=== PATIENT | male | born 1980 | race Hispanic/Latino ===

== ENCOUNTER 2021-03-29 12:06 | Inpatient (IN) | payer OTHER ==
[~2021-03-29] VITALS: Ht 152.4 cm; Wt 63.5 kg
[2021-03-29] VITALS (14 sets, daily range): BP systolic 102–127; BP diastolic 68–83
[2021-03-29 12:53] LABS: BASOPHILS % (AUTO) 0.3 % (0.0-5.0); EOSINOPHILS % (AUTO) 0.1 % (0.0-8.0); HEMATOCRIT 37.7 % (42-54); LYMPHOCYTES % (AUTO) 11.7 % (21.0-51.0); MEAN CORPUSCULAR HGB CONC 33.4 g/dL (32.0-36.0); MEAN CORPUSCULAR VOLUME 86.9 fL (79-99); NEUTROPHILS % (AUTO) 81.6 % (40.0-77.0); PLATELET COUNT (AUTO) 296 K/uL (130-400); RED BLOOD CELL COUNT(AUTO) 4.34 MIL/uL (4.50-6.20); RED CELL DISTRIBUTION WIDTH 11.9 % (11.0-15.5); WHITE BLOOD COUNT (AUTO) 10.9 K/uL (4.8-10.8)
[2021-03-29] MEDS ORDERED: VANCOMYCIN PROTOCOL PER PHARMACY IV SCH (13:00)
[2021-03-29] MEDS ORDERED: VANCOMYCIN 1G VIAL IVPB SCH (13:00)
[2021-03-29] MEDS: ZOSYN 3.375GM+NS 50ML 50 ML IV SCH ×2 (13:00→21:27)
[2021-03-29] MEDS ORDERED: ZOSYN 3.375GM+NS 50ML 3.38 GM in 0.9%NACL 50ML 50 ML IV SCH (13:00)
[2021-03-29] MEDS ORDERED: 0.9% NACL 250ML IV SCH (13:00)
[2021-03-29 13:09] LABS: CREATININE 0.8 mg/dL (0.5-1.5); POTASSIUM 4.6 mmol/L (3.5-5.1)
[2021-03-29] MEDS ORDERED: 0.9%NACL 50ML 50 ML IV ONE (13:13)
[2021-03-29 13:14] LABS: ALBUMIN 3.5 g/dL (3.5-5.0); BILIRUBIN,TOTAL 1.4 mg/dL (0.2-1.0); CRP QUANTITATIVE 171.1 mg/L (0.00-9.0); TOTAL PROTEIN, SERUM 9.2 g/dL (6.0-8.3)
[2021-03-29] MEDS ORDERED: MORPHINE 2 MG SYG IV PRN (14:00)
[2021-03-29] MEDS: VANCOMYCIN 1G/250ML KIT 250 ML IV SCH (14:00)
[2021-03-29] MEDS ORDERED: ONDANSETRON 4MG INJ IV PRN (14:00)
[2021-03-29] MEDS ORDERED: LACTULOSE 20 GM/30 ML UDCUP PO PRN (14:00)
[2021-03-29] MEDS ORDERED: ACETAMINOPHEN 325 MG TAB PO PRN ×2 (14:00)
[2021-03-29] MEDS: 0.9%NACL 1000ML 1,000 ML IV SCH ×2 (15:16→19:58)
[2021-03-29] MEDS ORDERED: MIDAZOLAM HCL 1 MG/ML 2ML VIAL ONE (16:35)
[2021-03-29] MEDS ORDERED: PROPOFOL 10 MG/ML 20ML VIAL IV ONE (16:35)
[2021-03-29] MEDS ORDERED: FENTANYL CITRATE PF 50 MCG/1 ML 2ML VIAL ONE ×2 (16:36→19:41)
[2021-03-29] MEDS ORDERED: BUPIVACAINE/PF 0.5% 10ML VIAL ONE (16:43)
[2021-03-29] MEDS ORDERED: LIDOCAINE HCL 1% MDV 50ML VIAL ONE (16:45)
[2021-03-29] MEDS ORDERED: PROPOFOL 1000 MG/100 ML 0 ML IV ONE (16:50)
[2021-03-29] MEDS ORDERED: PROPOFOL 1000 MG/100 ML 100 ML IV ONE (16:53)
[2021-03-29] MEDS ORDERED: INSULIN HUMULIN R 100 UNIT/ML 3ML SQ SCH (18:00)
[2021-03-29] MEDS ORDERED: LIDOCAINE HCL MPF 1% 5ML VIAL ONE (18:39)
[2021-03-29] MEDS ORDERED: ZOSYN 3.375GM+NS 50ML 50 ML IV SCH (21:00)
[2021-03-29] MEDS: FAMOTIDINE 20MG VIAL IV SCH (21:27)
[2021-03-30] VITALS (9 sets, daily range): BP systolic 99–148; BP diastolic 57–82
[2021-03-30] MEDS ORDERED: 0.9% NACL 250ML 250 ML ONE ×2 (02:10→14:46)
[2021-03-30] MEDS: 0.9%NACL 1000ML 1,000 ML IV SCH ×2 (02:15→17:10)
[2021-03-30] MEDS: VANCOMYCIN 1G/250ML KIT 250 ML IV SCH ×2 (02:16→14:48)
[2021-03-30] MEDS: ZOSYN 3.375GM+NS 50ML 50 ML IV SCH ×3 (04:37→20:22)
[2021-03-30 04:53] LABS: BASOPHILS % (AUTO) 0.2 % (0.0-5.0); EOSINOPHILS % (AUTO) 0.5 % (0.0-8.0); HEMATOCRIT 32.3 % (42-54); LYMPHOCYTES % (AUTO) 16.4 % (21.0-51.0); MEAN CORPUSCULAR HEMOGLOBIN 28.7 pg (27.0-33.0); MEAN CORPUSCULAR HGB CONC 32.8 g/dL (32.0-36.0); MEAN CORPUSCULAR VOLUME 87.5 fL (79-99); MONOCYTES % (AUTO) 7.9 % (3.0-13.0); NEUTROPHILS % (AUTO) 74.6 % (40.0-77.0); PLATELET COUNT (AUTO) 248 K/uL (130-400); RED BLOOD CELL COUNT(AUTO) 3.69 MIL/uL (4.50-6.20); RED CELL DISTRIBUTION WIDTH 11.9 % (11.0-15.5); WHITE BLOOD COUNT (AUTO) 8.4 K/uL (4.8-10.8)
[2021-03-30 05:04] LABS: CREATININE 0.7 mg/dL (0.5-1.5); POTASSIUM 3.6 mmol/L (3.5-5.1)
[2021-03-30] MEDS: INSULIN HUMULIN R 100 UNIT/ML 3ML SQ SCH ×4 (06:00→20:22)
[2021-03-30 08:38] LABS: HEMOGLOBIN A1C 6.7 % (4.0-6.0)
[2021-03-30] MEDS: ENOXAPARIN SODIUM 40 MG/0.4 ML SYRINGE SQ SCH (08:50)
[2021-03-30] MEDS: FAMOTIDINE 20MG VIAL IV SCH ×2 (08:50→20:22)
[2021-03-31] MEDS ORDERED: 0.9% NACL 250ML 250 ML ONE (01:10)
[2021-03-31] MEDS: VANCOMYCIN 1G/250ML KIT 250 ML IV SCH (01:53)
[2021-03-31 04:02] VITALS: BP 96/59
[2021-03-31] MEDS: ZOSYN 3.375GM+NS 50ML 50 ML IV SCH ×3 (04:40→20:20)
[2021-03-31] MEDS: 0.9%NACL 1000ML 1,000 ML IV SCH ×2 (04:41→19:28)
[2021-03-31 05:15] LABS: BASOPHILS % (AUTO) 0.5 % (0.0-5.0); EOSINOPHILS % (AUTO) 0.8 % (0.0-8.0); HEMATOCRIT 29.7 % (42-54); LYMPHOCYTES % (AUTO) 24.7 % (21.0-51.0); MEAN CORPUSCULAR HGB CONC 33.3 g/dL (32.0-36.0); MEAN CORPUSCULAR VOLUME 87.1 fL (79-99); MONOCYTES % (AUTO) 8.6 % (3.0-13.0); NEUTROPHILS % (AUTO) 65.1 % (40.0-77.0); PLATELET COUNT (AUTO) 248 K/uL (130-400); RED BLOOD CELL COUNT(AUTO) 3.41 MIL/uL (4.50-6.20); RED CELL DISTRIBUTION WIDTH 11.9 % (11.0-15.5)
[2021-03-31 05:24] LABS: CREATININE 0.7 mg/dL (0.5-1.5); POTASSIUM 3.5 mmol/L (3.5-5.1)
[2021-03-31] MEDS: INSULIN HUMULIN R 100 UNIT/ML 3ML SQ SCH ×4 (06:33→20:20)
[2021-03-31 08:16] VITALS: BP 107/68
[2021-03-31] MEDS: FAMOTIDINE 20MG VIAL IV SCH ×2 (09:26→20:20)
[2021-03-31] MEDS: ENOXAPARIN SODIUM 40 MG/0.4 ML SYRINGE SQ SCH (09:27)
[2021-03-31 11:42] VITALS: BP 94/58
[2021-03-31] MEDS ORDERED: COMPOUND IV REFRIGERATED 1 EACH IVSOLN MISC PRN (14:00)
[2021-03-31] MEDS: VANCOMYCIN 1G 1.25 GM in 0.9% NACL 250ML 250 ML IV SCH (14:43)
[2021-03-31 15:45] VITALS: BP 107/66
[2021-03-31 20:00] VITALS: BP 114/77
[2021-04-01] VITALS (7 sets, daily range): BP systolic 98–140; BP diastolic 66–87
[2021-04-01] MEDS: VANCOMYCIN 1G 1.25 GM in 0.9% NACL 250ML 250 ML IV SCH ×2 (01:53→16:44)
[2021-04-01] MEDS: ZOSYN 3.375GM+NS 50ML 50 ML IV SCH ×3 (04:25→20:12)
[2021-04-01] MEDS: INSULIN HUMULIN R 100 UNIT/ML 3ML SQ SCH ×4 (06:06→20:10)
[2021-04-01 06:26] LABS: BASOPHILS % (AUTO) 0.3 % (0.0-5.0); EOSINOPHILS % (AUTO) 1.9 % (0.0-8.0); HEMATOCRIT 32.8 % (42-54); LYMPHOCYTES % (AUTO) 23.4 % (21.0-51.0); MEAN CORPUSCULAR HEMOGLOBIN 29.5 pg (27.0-33.0); MEAN CORPUSCULAR HGB CONC 33.5 g/dL (32.0-36.0); MEAN CORPUSCULAR VOLUME 87.9 fL (79-99); MONOCYTES % (AUTO) 7.5 % (3.0-13.0); NEUTROPHILS % (AUTO) 66.6 % (40.0-77.0); PLATELET COUNT (AUTO) 260 K/uL (130-400); RED BLOOD CELL COUNT(AUTO) 3.73 MIL/uL (4.50-6.20); WHITE BLOOD COUNT (AUTO) 6.8 K/uL (4.8-10.8)
[2021-04-01 06:41] LABS: CREATININE 0.7 mg/dL (0.5-1.5); POTASSIUM 3.5 mmol/L (3.5-5.1)
[2021-04-01] MEDS: ENOXAPARIN SODIUM 40 MG/0.4 ML SYRINGE SQ SCH (08:54)
[2021-04-01] MEDS: FAMOTIDINE 20MG VIAL IV SCH ×2 (08:54→20:12)
[2021-04-01] MEDS: 0.9%NACL 1000ML 1,000 ML IV SCH (09:10)
[2021-04-02] MEDS: VANCOMYCIN 1G 1.25 GM in 0.9% NACL 250ML 250 ML IV SCH (02:22)
[2021-04-02] MEDS: 0.9%NACL 1000ML 1,000 ML IV SCH (02:23)
[2021-04-02 03:37] VITALS: BP 109/72
[2021-04-02] MEDS: ZOSYN 3.375GM+NS 50ML 50 ML IV SCH (05:30)
[2021-04-02 06:24] LABS: BASOPHILS % (AUTO) 0.5 % (0.0-5.0); EOSINOPHILS % (AUTO) 2.8 % (0.0-8.0); HEMATOCRIT 32.8 % (42-54); MEAN CORPUSCULAR HEMOGLOBIN 28.6 pg (27.0-33.0); MEAN CORPUSCULAR HGB CONC 32.9 g/dL (32.0-36.0); MEAN CORPUSCULAR VOLUME 86.8 fL (79-99); MONOCYTES % (AUTO) 7.2 % (3.0-13.0); NEUTROPHILS % (AUTO) 61.2 % (40.0-77.0); PLATELET COUNT (AUTO) 294 K/uL (130-400); RED BLOOD CELL COUNT(AUTO) 3.78 MIL/uL (4.50-6.20); RED CELL DISTRIBUTION WIDTH 11.8 % (11.0-15.5); WHITE BLOOD COUNT (AUTO) 6.1 K/uL (4.8-10.8)
[2021-04-02 06:36] LABS: CREATININE 0.7 mg/dL (0.5-1.5); POTASSIUM 3.7 mmol/L (3.5-5.1)
[2021-04-02] MEDS: INSULIN HUMULIN R 100 UNIT/ML 3ML SQ SCH ×3 (07:01→18:03)
[2021-04-02 08:00] VITALS: BP 107/69
[2021-04-02] MEDS: FAMOTIDINE 20MG VIAL IV SCH (10:15)
[2021-04-02] MEDS: ENOXAPARIN SODIUM 40 MG/0.4 ML SYRINGE SQ SCH (10:15)
[2021-04-02 12:00] VITALS: BP 101/74
[2021-04-02] MEDS ORDERED: IBUP-2077 PO (14:16)
[2021-04-02 16:00] VITALS: BP 133/80
[2021-04-02 19:47] VITALS: BP 131/84
== END 2021-04-02 20:56 | disposition home or self-care (01) | DRG 617 ==
LOC: EDH 12:06 → OBSVTOIN 12:07 → EDHIP 12:07 → 3CH 20:24
PROVIDERS: ADMIT Internal Medicine; ATTEND Internal Medicine
PROC: 0Y6M0ZC Detachment at Right Foot, Partial 3rd Ray, Open Approach (ICD-10-PCS; 2021-03-29)
PROC: 0Y6M0Z9 Detachment at Right Foot, Partial 1st Ray, Open Approach (ICD-10-PCS; principal; 2021-03-29 18:55)
DX: E11.621 Type 2 diabetes mellitus with foot ulcer (principal); E87.1 Hypo-osmolality and hyponatremia; M86.671 Other chronic osteomyelitis, right ankle and foot; E11.69 Type 2 diabetes mellitus with other specified complication; L97.519 Non-pressure chronic ulcer of other part of right foot with unspecified severity; E11.42 Type 2 diabetes mellitus with diabetic polyneuropathy; Z20.822 Contact with and (suspected) exposure to COVID-19
CPT/HCPCS: 36415; 71045; 73630; 73718; 80048; 80053; 80202; 82948; 83036; 83605; 84145; 85025; 86140; 87040; 87070; 87076; 87077; 87186; 87205; 87635; 93005; 97039; C9803; G0378; J1650; J1815; J2250; J2543; J2704; J3010; J3370; J3490; J7030; J7050

== ENCOUNTER 2022-01-25 16:02 | Emergency (ER) | payer OTHER ==
[~2022-01-25] VITALS: Ht 152.4 cm; Wt 72.6 kg
[~2022-01-25 16:02] MED LIST: IBUP-2077 PO
[2022-01-25] MEDS: FLUORESCEIN SODIUM 1 STRIP STRIP OP SCH (17:00)
[2022-01-25] MEDS: TETRACAINE HCL 0.5% 4 ML OPHTH SOLN OP SCH (17:00)
[2022-01-25 17:08] VITALS: BP 140/86
== END 2022-01-25 17:25 | disposition home or self-care (01) ==
LOC: EDH 16:02
DX: H43.392 Other vitreous opacities, left eye (principal); E11.9 Type 2 diabetes mellitus without complications
CPT/HCPCS: 99281

== ENCOUNTER 2022-10-04 09:15 | Emergency (ER) | payer OTHER ==
[~2022-10-04] VITALS: Ht 152.4 cm; Wt 72.6 kg
[2022-10-04 09:56] LABS: BASOPHILS % (AUTO) 0.2 % (0.0-5.0); EOSINOPHILS % (AUTO) 0.6 % (0.0-8.0); HEMATOCRIT 42.2 % (42-54); LYMPHOCYTES % (AUTO) 17.7 % (21.0-51.0); MEAN CORPUSCULAR HEMOGLOBIN 28.6 pg (27.0-33.0); MEAN CORPUSCULAR HGB CONC 33.6 g/dL (32.0-36.0); MEAN CORPUSCULAR VOLUME 85.1 fL (79-99); MONOCYTES % (AUTO) 7.1 % (3.0-13.0); NEUTROPHILS % (AUTO) 74.2 % (40.0-77.0); PLATELET COUNT (AUTO) 212 K/uL (130-400); RED BLOOD CELL COUNT(AUTO) 4.96 MIL/uL (4.50-6.20); RED CELL DISTRIBUTION WIDTH 12.4 % (11.0-15.5); WHITE BLOOD COUNT (AUTO) 8.4 K/uL (4.8-10.8)
[2022-10-04 10:06] LABS: CREATININE 0.9 mg/dL (0.5-1.5); POTASSIUM 3.9 mmol/L (3.5-5.1)
[2022-10-04 10:11] LABS: ALBUMIN 3.8 g/dL (3.5-5.0); TOTAL PROTEIN, SERUM 8.2 g/dL (6.0-8.3)
[2022-10-04 10:32] VITALS: BP 123/81
[2022-10-04] MEDS ORDERED: KETOROLAC 60 MG VIAL (30MG/ML) IM ONE ×2 (11:25→11:30)
[2022-10-04] MEDS ORDERED: CEFTRIAXONE 1G VIAL IVP ONE (12:00)
[2022-10-04] MEDS ORDERED: IBUP-2070 PO (13:02)
[2022-10-04] MEDS ORDERED: AMOX-426 PO (13:02)
== END 2022-10-04 13:19 | disposition home or self-care (01) ==
LOC: EDH 09:15
DX: L03.116 Cellulitis of left lower limb (principal); E11.9 Type 2 diabetes mellitus without complications; Z98.890 Other specified postprocedural states
CPT/HCPCS: 99284; 96374; 80053; 85025; 85651; 86140; 36415; 73630; 96372; J0696; J1885

== ENCOUNTER 2022-12-12 09:24 | Emergency (ER) | payer SELFPAY ==
[~2022-12-12] VITALS: Ht 167.6 cm; Wt 72.6 kg
[~2022-12-12 09:24] MED LIST changes: +AMOX-426 PO; +IBUP-2070 PO
[2022-12-12 09:25] VITALS: BP 126/87
[2022-12-12] MEDS ORDERED: CEPHALEXIN 500 MG CAPSULE PO ONE (10:30)
[2022-12-12] MEDS ORDERED: KETOROLAC 60 MG VIAL (30MG/ML) IM ONE (10:30)
[2022-12-12 10:47] LABS: BASOPHILS % (AUTO) 0.3 % (0.0-5.0); EOSINOPHILS % (AUTO) 2.5 % (0.0-8.0); HEMATOCRIT 39.9 % (42-54); LYMPHOCYTES % (AUTO) 24.1 % (21.0-51.0); MEAN CORPUSCULAR HEMOGLOBIN 28.5 pg (27.0-33.0); MEAN CORPUSCULAR HGB CONC 33.3 g/dL (32.0-36.0); MEAN CORPUSCULAR VOLUME 85.6 fL (79-99); MONOCYTES % (AUTO) 6.4 % (3.0-13.0); NEUTROPHILS % (AUTO) 66.4 % (40.0-77.0); PLATELET COUNT (AUTO) 237 K/uL (130-400); RED BLOOD CELL COUNT(AUTO) 4.66 MIL/uL (4.50-6.20); WHITE BLOOD COUNT (AUTO) 7.5 K/uL (4.8-10.8)
[2022-12-12 10:54] LABS: CREATININE 0.8 mg/dL (0.5-1.5); POTASSIUM 4.7 mmol/L (3.5-5.1)
[2022-12-12] MEDS: SULFAMETHOX-TMP DS 800/160 TAB PO SCH ×2 (11:14→11:20)
[2022-12-12] MEDS ORDERED: CEPH500B PO (12:13)
[2022-12-12] MEDS ORDERED: SULF1TAB42 PO (12:13)
== END 2022-12-12 12:36 | disposition home or self-care (01) ==
LOC: EDH 09:24
DX: L03.032 Cellulitis of left toe (principal); E11.9 Type 2 diabetes mellitus without complications; Z79.899 Other long term (current) drug therapy; Z98.890 Other specified postprocedural states
CPT/HCPCS: 99285; 73700; 80048; 85025; 36415; 96372; J1885

== ENCOUNTER 2023-09-22 20:52 | Emergency (ER) | payer OTHER ==
[~2023-09-22] VITALS: Ht 167.6 cm; Wt 73.5 kg
[~2023-09-22 20:52] MED LIST changes: +CEPH500B PO; +SULF1TAB42 PO
[2023-09-22 21:19] LABS: APPEARANCE,URINE CLEAR (CLEAR); BILIRUBIN,URINE NEGATIVE (NEGATIVE); COLOR,URINE LIGHT-YELLOW (YELLOW); GLUCOSE, URINE (UA) NEGATIVE (NEGATIVE); KETONES,URINE NEGATIVE (NEGATIVE); LEUKOCYTE ESTERASE ,URINE NEGATIVE Leu/uL (NEGATIVE); NITRATE,URINE NEGATIVE (NEGATIVE); OCCULT BLOOD,URINE NEGATIVE (NEGATIVE); PH,URINE 5.5 (5.0-8.0); PROTEIN,URINE 10 mg/dL (NEGATIVE); UROBILINOGEN,URINE 0.2 mg/dL (0.2-1.0)
[2023-09-22 21:22] LABS: ADD UA MICROSCOPIC YES
[2023-09-22 21:23] LABS: BACTERIA,URINE None Seen /HPF (None Seen); RBC,URINE 0-1 /HPF (0-1); WBC,URINE 0-1 /HPF (0-1)
[2023-09-22 22:04] LABS: BASOPHILS # (AUTO) 0.02 K/uL (0.00-0.20); BASOPHILS % (AUTO) 0.3 % (0.0-5.0); EOSINOPHILS # (AUTO) 0.09 K/uL (0.00-0.70); EOSINOPHILS % (AUTO) 1.2 % (0.0-8.0); IMMATURE GRANULOCYTE ABSOLUTE 0.02 K/uL (0-1); LYMPHOCYTES # (AUTO) 1.9 K/uL (1.0-4.8); LYMPHOCYTES % (AUTO) 24.6 % (21.0-51.0); MEAN CORPUSCULAR HGB CONC 34.3 g/dL (32.0-36.0); MEAN CORPUSCULAR VOLUME 84.5 fL (79-99); MONOCYTES # (AUTO) 0.5 K/uL (0.1-1.0); MONOCYTES % (AUTO) 6.9 % (3.0-13.0); NEUTROPHILS # (AUTO) 5.1 K/uL (1.8-7.7); NEUTROPHILS % (AUTO) 66.7 % (40.0-77.0); PLATELET COUNT (AUTO) 229 K/uL (130-400); RED BLOOD CELL COUNT(AUTO) 4.97 MIL/uL (4.50-6.20); RED CELL DISTRIBUTION WIDTH 12.5 % (11.0-15.5); WHITE BLOOD COUNT (AUTO) 7.7 K/uL (4.8-10.8)
[2023-09-22 22:29] LABS: CREATININE 1.1 mg/dL (0.5-1.3); POTASSIUM 3.8 mmol/L (3.5-5.1)
[2023-09-22 22:35] VITALS: BP 147/92; PULSE 83; RESP 18; O2SAT 98
[2023-09-22 22:36] LABS: BILIRUBIN,TOTAL 0.8 mg/dL (0.2-1.0); TOTAL PROTEIN, SERUM 8.5 g/dL (6.0-8.3)
== END 2023-09-22 22:55 | disposition home or self-care (01) ==
LOC: EDH 20:52
DX: R10.11 Right upper quadrant pain (principal); E11.9 Type 2 diabetes mellitus without complications; Z79.899 Other long term (current) drug therapy; Z98.890 Other specified postprocedural states
CPT/HCPCS: 36415; 80053; 81001; 83690; 85025